=== PATIENT | female | born 1950 | race Caucasian/White ===

== ENCOUNTER 2018-03-26 13:59 | Emergency (ER) | payer OTHER ==
[2018-03-26] MEDS ORDERED: CEPHALEXIN 500 MG CAP PO ONE (15:17)
--- NOTE | 2018-03-26 15:18 | EDPHY ---
H & P Stated Complaint: Blood in urine this morning. Time Seen by Provider: 03/26/18 15:00 HPI/ROS: CHIEF COMPLAINT: Blood in urine HISTORY OF PRESENT ILLNESS: 67-year-old female presents with bloody urine. Onset of gross hematuria this morning, associated with urinary frequency. Symptoms are moderate. No vomiting, fever or flank pain. Prior history of urinary tract infection several years ago. No aspirin or anticoagulants. REVIEW OF SYSTEMS: complete 10 point ROS reviewed and is negative except for the noted elements in the HPI - Personal History Current Tetanus Diphtheria and Acellular Pertussis (TDAP): Unsure - Medical/Surgical History Hx Asthma: No Hx Chronic Respiratory Disease: No Hx Diabetes: No Hx Cardiac Disease: No Hx Renal Disease: No Hx Cirrhosis: No Hx Alcoholism: No Hx HIV/AIDS: No Hx Splenectomy or Spleen Trauma: No Other PMH: Left ankle injury - Jan 2018. - Social History Smoking Status: Never smoked Additional Social History: - Physical Exam Exam: General Appearance: Alert, pleasant Eyes: Pupils equal and round, no conjunctival pallor ENT, Mouth: Mucous membranes moist Neck: Normal inspection Respiratory: Lungs are clear to auscultation Cardiovascular: Regular rate and rhythm Gastrointestinal: Abdomen is soft and nontender Back: No CVA tenderness Neurological: A&O, nonfocal exam Skin: Warm and dry Extremities: Normal inspection Psychiatric: Mood and affect normal Constitutional: Initial Vital Signs Temperature (C) 36.8 C 03/26/18 14:01 Heart Rate 92 03/26/18 14:01 Respiratory Rate 16 03/26/18 14:01 Blood Pressure 114/67 03/26/18 14:01 O2 Sat (%) 97 03/26/18 14:01 O2 Delivery Mode Room Air Allergies/Adverse Reactions: No Known Allergies Allergy (Unverified 03/26/18 14:07) Home Medications: Medication Instructions Recorded Calcium 03/26/18 Cephalexin [Keflex (*)] 500 mg PO BID #10 cap 03/26/18 Medical Decision Making ED Course/Re-evaluation: This patient presents with urinary tract infection. Urine culture sent and Keflex 500 mg orally given. - Data Points Laboratory Results: 03/26/18 14:30 Urine Color RED Urine Appearance HAZY Urine pH 7.0 (5.0-7.5) Ur Specific [place] 1.008 (1.002-1.030) Urine Protein 2+ H (NEGATIVE) Urine Ketones NEGATIVE (NEGATIVE) Urine Blood 3+ H (NEGATIVE) Urine Nitrate POSITIVE H (NEGATIVE) Urine Bilirubin NEGATIVE (NEGATIVE) Urine Urobilinogen NEGATIVE EU EU (0.2-1.0) Ur Leukocyte Esterase 2+ H (NEGATIVE) Urine RBC 50-182 /hpf H /hpf (0-3) Urine WBC 25-50 /hpf H /hpf (0-3) Ur Epithelial Cells TRACE /lpf /lpf (NONE-1+) Urine Bacteria 4+ /hpf H /hpf (NONE SEEN) Urine Glucose NEGATIVE (NEGATIVE) Departure - Departure Disposition: Home, Routine, Self-Care Clinical Impression: Urinary tract infection Qualifiers: Urinary tract infection type: acute cystitis Hematuria presence: with hematuria Qualified Code(s): N30.01 - Acute cystitis with hematuria Condition: Good Instructions: Urinary Tract Infection in Women (ED) Additional Instructions: Return for worsening symptoms, including vomiting, fever or flank pain. Call in 2 days for urine culture results. Referrals: ISAIAH BHANDARI [Other] - As per Instructions Prescriptions: Cephalexin [Keflex (*)] 500 mg PO BID #10 cap
[2018-03-26 15:28] VITALS: BP 124/74
== END 2018-03-26 15:28 | disposition home or self-care (01) ==
DX: N30.01 Acute cystitis with hematuria (principal); Z87.440 Personal history of urinary (tract) infections